=== PATIENT | male | born 1945 | race Caucasian/White ===

== ENCOUNTER 2017-05-17 10:36 | Inpatient (IN) | payer MEDICARE, OTHER ==
[~2017-05-17] VITALS: Ht 175.3 cm; Wt 64.9 kg
[2017-05-17] MEDS ORDERED: ALPR1TAB2 PO (10:47)
[2017-05-17] MEDS ORDERED: ONDA8TAB6 PO (10:47)
[2017-05-17] MEDS ORDERED: HYDR-3326 PO (10:47)
[2017-05-17] MEDS ORDERED: ESCI10TA PO (10:47)
--- NOTE | 2017-05-17 10:58 | NUR ---
hospital sandwich provided per pt request
--- NOTE | 2017-05-17 11:18 | NUR ---
talked to pt daughter chris snow through pt own cell phen. per pt request, antonio cedeño, and chris snow the daughter will be emergency contacts. info updatd in the face sheet.
[2017-05-17 11:30] VITALS: BP 127/66
[2017-05-17] MEDS ORDERED: MAGNESIUM HYDROXIDE 30 ML LIQUID UDC PO PRN (11:30)
[2017-05-17] MEDS ORDERED: CLONAZEPAM 0.5 MG TABLET PO PRN (11:30)
[2017-05-17] MEDS ORDERED: ACETAMINOPHEN 325 MG TABLET PO PRN (11:30)
[2017-05-17] MEDS: MAG HYDROX/AL HYDROX/SIMETH 30 ML LIQUID UDC PO PRN ×2 (12:55→18:58)
--- NOTE | 2017-05-17 14:41 | NUR ---
GPS/RN- ADMISSION NOTE Patient admitted on 5149 for Danger to Self, per 5149 Ankit's Daughter called 911 inferred he was going to hill himself . Per Ankits daughter , Ankit stated "The family will be better off if I'm , I'm calling to say lyudmilasteven". Ankit's daughter stated Ankit has been depressed for 5 months. When Ankit daughter was contacted he admitted to making the statement to his sister, Defin admitted he was depressed but denied Feeling suicidal. Upon face to face assessment, patient is alert and oriented to person place time and situation, acknowledges his statement, states he is depressed and feels his family is better off without him,stated he verbalized that he threatened to kill himself but had no plan. patient acknowledges feeling depressed over family dynamics at home, arguments with and daughter and also a factor affecting is his alcoholism, patient able to verbalize feelings and contract for safety. Patient with active ETOH use, last drink on 05/10/17 or 05/11/17, drinks a couple of beers of half pint of vodka. Drink 4-5 times a week. patient uses marijuana for back pain, does not a prescriptions for it but verbalized did before. Addendum: 05/17/17 at 1502 by RUPESH YUSUF RN Denies any visual or auditory hallucinations. no delusions noted. continue to monitor able to contract for safety
--- NOTE | 2017-05-17 14:49 | NUR ---
GPS/RN- patient aware of hold. provided with hold advisement, unit guidelines, patient rights.
[2017-05-17] MEDS ORDERED: LORAZEPAM 1 MG TABLET PO PRN (19:30)
[2017-05-17] MEDS: TAMSULOSIN HCL 0.4 MG CAP.SR.24H PO SCH (21:15)
[2017-05-17] MEDS: TEMAZEPAM 7.5 MG CAPSULE PO PRN (21:15)
[2017-05-17] MEDS ORDERED: TAMSULOSIN HCL 0.4 MG CAP.SR.24H ONE (21:27)
--- NOTE | 2017-05-17 21:37 | NUR ---
PATIENT RECEIVED IN ROOM AWAKE, ALERT/ORIENTED X4. PATIENT ABLE TO MAKE NEEDS KNOWN. PATIENT CALM, PLEASANT UPON APPROACH. PATIENT DENIES SI OR ANY ATTEND TO HARM SELF OR OTHERS, WITH NO PLAN. PATIENT COMPLAINT WITH MEDICATION. NO AGGRESSIVE OR COMBATIVE BEHAVIOR NOTE, NO AGITATION NOTED WILL CONTINUE TO MONITOR AND REDIRECT NEEDED.
[2017-05-18 06:11] VITALS: BP 115/88
[2017-05-18] MEDS: PANTOPRAZOLE SODIUM 40 MG TABLET.DR PO SCH (06:27)
[2017-05-18 07:30] VITALS: BP 127/93
[2017-05-18] MEDS ORDERED: HYDROCODONE/APAP 5-325MG TABLET PO PRN (09:00)
[2017-05-18] MEDS ORDERED: HYDROCODONE/APAP 5-325MG TABLET PO SCH (09:00)
[2017-05-18] MEDS: MULTIVITAMINS,THERAPEUTIC TABLET PO SCH (09:02)
[2017-05-18] MEDS: FOLIC ACID/VITAMIN B COMP W-C TABLET PO SCH (09:02)
[2017-05-18] MEDS: DOCUSATE SODIUM 100 MG CAPSULE PO SCH (09:02)
[2017-05-18] MEDS: THIAMINE HCL 100 MG TABLET PO SCH (09:02)
--- NOTE | 2017-05-18 10:52 | NUR ---
Initial discharge instructions: Pt resides at home with his [[id number],[place], [place],[address];[phone]].Per pt,he would like to return home upon discharge.SW will speak with pt,,and MD regarding appropriate discharge plans.SW will form a safe and proper discharge.
[2017-05-18] MEDS: ESCITALOPRAM OXALATE 10 MG TABLET PO SCH (11:25)
[2017-05-18] MEDS ORDERED: ONDANSETRON HCL 4 MG TABLET PO PRN (15:45)
[2017-05-18] MEDS: MAG HYDROX/AL HYDROX/SIMETH 30 ML LIQUID UDC PO PRN (16:15)
[2017-05-18 17:10] VITALS: BP 123/73
[2017-05-18 20:22] VITALS: BP 128/93
[2017-05-18] MEDS: TAMSULOSIN HCL 0.4 MG CAP.SR.24H PO SCH (20:46)
[2017-05-18] MEDS: TEMAZEPAM 7.5 MG CAPSULE PO PRN (22:03)
[2017-05-19] MEDS: PANTOPRAZOLE SODIUM 40 MG TABLET.DR PO SCH (06:54)
[2017-05-19 07:30] VITALS: BP 118/75
[2017-05-19] MEDS: FOLIC ACID/VITAMIN B COMP W-C TABLET PO SCH (09:12)
[2017-05-19] MEDS: MULTIVITAMINS,THERAPEUTIC TABLET PO SCH (09:12)
[2017-05-19] MEDS: ESCITALOPRAM OXALATE 10 MG TABLET PO SCH (09:12)
[2017-05-19] MEDS: DOCUSATE SODIUM 100 MG CAPSULE PO SCH (09:12)
[2017-05-19] MEDS: THIAMINE HCL 100 MG TABLET PO SCH (09:15)
--- NOTE | 2017-05-19 10:00 | NUR ---
PT TOOK ALL AM MEDS IS CALM AND QUIET, NO DISTRESS NOTED.
[2017-05-19 15:31] VITALS: BP 113/75
--- NOTE | 2017-05-19 18:00 | NUR ---
PT EATING DINNER AT BEDSIDE, NO DISTRESS, WILL GIVE REPORT TO MECHANICAL DESIGN ENGINEER PRODUCTS NURSE.
[2017-05-19 20:08] VITALS: BP 143/87
[2017-05-19] MEDS: TEMAZEPAM 7.5 MG CAPSULE PO PRN (20:58)
[2017-05-19] MEDS: TAMSULOSIN HCL 0.4 MG CAP.SR.24H PO SCH (20:58)
[2017-05-20] MEDS: PANTOPRAZOLE SODIUM 40 MG TABLET.DR PO SCH (06:52)
[2017-05-20 07:30] VITALS: BP 113/72
[2017-05-20] MEDS: THIAMINE HCL 100 MG TABLET PO SCH (08:39)
[2017-05-20] MEDS: MULTIVITAMINS,THERAPEUTIC TABLET PO SCH (08:40)
[2017-05-20] MEDS: FOLIC ACID/VITAMIN B COMP W-C TABLET PO SCH (08:40)
[2017-05-20] MEDS: ESCITALOPRAM OXALATE 10 MG TABLET PO SCH (08:40)
[2017-05-20] MEDS: DOCUSATE SODIUM 100 MG CAPSULE PO SCH (08:40)
[2017-05-20 15:23] VITALS: BP 123/78
[2017-05-20] MEDS: TAMSULOSIN HCL 0.4 MG CAP.SR.24H PO SCH (20:23)
[2017-05-20 20:59] VITALS: BP 132/80
[2017-05-20] MEDS: TEMAZEPAM 7.5 MG CAPSULE PO PRN (22:23)
[2017-05-21] MEDS: PANTOPRAZOLE SODIUM 40 MG TABLET.DR PO SCH (06:23)
[2017-05-21 07:30] VITALS: BP 122/68
[2017-05-21] MEDS: DOCUSATE SODIUM 100 MG CAPSULE PO SCH (09:17)
[2017-05-21] MEDS: MULTIVITAMINS,THERAPEUTIC TABLET PO SCH (09:17)
[2017-05-21] MEDS: ESCITALOPRAM OXALATE 10 MG TABLET PO SCH (09:18)
[2017-05-21] MEDS: FOLIC ACID/VITAMIN B COMP W-C TABLET PO SCH (09:18)
[2017-05-21] MEDS: THIAMINE HCL 100 MG TABLET PO SCH (09:19)
--- NOTE | 2017-05-21 14:06 | NUR ---
received patient alert and orientated times two inn bed , when i offered pt medications he adamently refused and prented to take pilss then said i dont want them with strnge facial ,look on face gave pills back , very isolATIVE NO PEER INTERACTION JUST STARING most of time , will continue to monitor for safety. Addendum: 05/21/17 at 1456 by MARY MULLER RN charted on wrong patient this refusal note for rupal mihaela in 145 bed a , this patient is med compliant
--- NOTE | 2017-05-21 16:18 | NUR ---
received patient in bed asleep aroysable to verbal and tactile stimulation , behavior less agitated today 1;1 caregiver at bedside for safety , pt is med compliant and abdominal incisions clean dry and in tact with iodosorb place as ordere skin appears to be coming together and shrinking
[2017-05-21 17:15] VITALS: BP 150/93
[2017-05-21] MEDS: TEMAZEPAM 7.5 MG CAPSULE PO PRN (20:44)
[2017-05-21] MEDS: TAMSULOSIN HCL 0.4 MG CAP.SR.24H PO SCH (20:44)
[2017-05-21 20:53] VITALS: BP 116/78
--- NOTE | 2017-05-22 05:50 | NUR ---
GPS/NSG PATIENT FIRST OBSERVED AWAKE IN ROOM, WITH FLAT AFFECT, FAIR MOOD. PATIENT IS COMPLIANT WITH MEDICATION, REQUESTED A PRN FOR INSOMNIA WITH EFFECTIVE OUTCOME. PATIENT DENIES SUICIDAL IDEATION OR INTENT IS ABLE TO CONTRACT FOR SAFETY. WILL CONTINUE TO MONITOR WELL PROVIDE A THERAPEUTIC AND SAFE ENVIRONMENT.
[2017-05-22] MEDS: PANTOPRAZOLE SODIUM 40 MG TABLET.DR PO SCH (06:42)
[2017-05-22 07:30] VITALS: BP 105/71
[2017-05-22] MEDS: DOCUSATE SODIUM 100 MG CAPSULE PO SCH (09:00)
[2017-05-22] MEDS: ESCITALOPRAM OXALATE 10 MG TABLET PO SCH (09:34)
[2017-05-22] MEDS: FOLIC ACID/VITAMIN B COMP W-C TABLET PO SCH (09:34)
[2017-05-22] MEDS: THIAMINE HCL 100 MG TABLET PO SCH (09:34)
[2017-05-22] MEDS: MULTIVITAMINS,THERAPEUTIC TABLET PO SCH (09:35)
--- NOTE | 2017-05-22 11:22 | NUR ---
DC Note: Patient will be discharged today back home [[id number] [place], [address]; [phone]] via public transportation at 1:00 pm. Patient will be provided with taxi voucher that will transport him to the [place] [facility] [[address] [place] [address]] at 3:35 pm. Patient reported he will then take the [facility] [[address] [place] [address]] back home and would arrive at 5:39 pm. Spoke with patient's , Verenice [phone] who stated she would pick him up. Spoke with patient's daughter, Enio [phone] who is aware and agreeable with discharge plans. Patient is aware and agreeable with discharge plans as well. Patient will follow-up with ([facility]) [[address], [place] [address]; ] and (Social Psychologist) [[address] [place] [address]; ]. Patient was referred to [facility] [[address] [place] [address] ; ], [facility] [[address], [address], [place] [address]; ], [facility], [address], [address], [place] [address]; ], 21/[facility] [place]: [facility] [place] [address] , and the 24 Hour/Suicide Prevention Hotline [phone]) 701-QQFH (8625) for mental health referrals. Patient was provided with a brief substance abuse intervention and referred to [facility] [phone], [facility] [phone], and Narcotics Anonymous. Patient was encouraged to attend Narcotics Anonymous meeting at [address], [address], [place], [address] on Sunday05/25/17 at 7:30 pm. Addendum: 05/22/17 at 1127 by BRIAN REYES Patient is alert and oriented x4. Patient denied any suicidal and homicidal ideations.
--- NOTE | 2017-05-22 15:17 | NUR ---
1405 PATIENT WILL DISCHARGED HOME TODAY VIA TAXI VOUCHER GOING TO [facility] THEN HE WILL TAKE THE [facility] STATION GOING BACK HOME . HOG OPERATOR COMMUNICATED WITH PATIENT'S AND DAUGHTER AND AGREED OF THE PLAN.1405 DISCHARGED INSTRUCTIONS GIVEN TO PATIENT REGARDING MEDICATIONS TO CONTINUE AT HOME AND PRESCRIPTION GIVEN, PATIENT VERBALIZED UNDERSTANDING. 1430 PICKED UP BY TAXI AND TRANSPORTED PATIENT TO [place] [facility] STABLE CONDITION, ALERT AND OX4 DENIES SUICIDAL THOUGHTS/ DENIES HOMICIDAL IDEATION. NO HALLUCINATION/NO DELUSIONS NOTED.
--- NOTE | 2017-05-22 19:07 | NUR ---
GPS/RN - PATIENT LEXAPRO 15MG BY MOUTH DAILY CALLED IN TO PATIENTS PHARMACY [facility] [phone], SPOKE WITH PHARMACIST ILAN. SUPPLY FOR 7 DAYS.
[2017-05-23] MEDS ORDERED: FOLIC ACID 1 MG TABLET PO SCH (09:00)
== END 2017-05-22 14:30 | disposition home or self-care (01) | DRG 885 ==
LOC: ER 10:36 → GPS 11:10
PROVIDERS: ADMIT Psychiatry & Neurology Psychiatry; ATTEND Family Medicine
DX: F33.2 Major depressive disorder, recurrent severe without psychotic features (principal); F12.10 Cannabis abuse, uncomplicated; E78.5 Hyperlipidemia, unspecified; Z87.891 Personal history of nicotine dependence; I25.10 Atherosclerotic heart disease of native coronary artery without angina pectoris; Z95.5 Presence of coronary angioplasty implant and graft; Z80.8 Family history of malignant neoplasm of other organs or systems; N40.0 Benign prostatic hyperplasia without lower urinary tract symptoms; F10.20 Alcohol dependence, uncomplicated; Y90.9 Presence of alcohol in blood, level not specified; R73.03 Prediabetes; K21.9 Gastro-esophageal reflux disease without esophagitis; H91.90 Unspecified hearing loss, unspecified ear; G89.29 Other chronic pain; M19.90 Unspecified osteoarthritis, unspecified site
CPT/HCPCS: 36415; 97161